=== PATIENT | male | born 1965 | race American Indian/Alaskan Native ===

== ENCOUNTER 2018-03-13 07:19 | Emergency (ER) | payer OTHER ==
[2018-03-13 09:05] LABS: Bilirubin,Urine NEG (Negative); Blood,Urine SM (Negative); Color,Urine Yellow (Yellow)
[2018-03-13 09:57] LABS: Basophils % (Auto) 0.2 % (0.0-1.8); Hemoglobin 15.8 gm/dl (11.8-15.2); Lymphocytes # (Auto) 0.8 K/mm3 (1.2-5.4); Lymphocytes % (Auto) 5.6 % (13.4-35.0); Mean Corpuscular HGB Conc 32 % (32-34); Mean Corpuscular Hemoglobin 27 pg (28-32); Mean Corpuscular Volume 83 fl (84-94); Monocytes # (Auto) 0.9 K/mm3 (0.0-0.8); Monocytes % (Auto) 6.2 % (0.0-7.3); Platelet Count 141 K/mm3 (140-440); Red Blood Count 5.91 M/mm3 (3.65-5.03); Red Cell Distribution Width 14.3 % (13.2-15.2)
[2018-03-13 10:20] LABS: Alanine Aminotransferase 36 units/L (7-56); BUN/Creatinine Ratio 13; Blood Urea Nitrogen 10 mg/dL (9-20); Calcium 9.3 mg/dL (8.4-10.2); Hemolysis Index 3
[2018-03-13] MEDS ORDERED: TORADOL IM ONE (11:33)
[2018-03-13] MEDS ORDERED: ULTRAM PO ONE (11:33)
[2018-03-13] MEDS ORDERED: BACTRIM DS PO ONE (11:33)
--- NOTE | 2018-03-13 11:41 | Emergency Department Report ---
ED Male HPI - General Chief complaint: Abdominal Pain Stated complaint: PAIN WITH UNRINATION Time Seen by Provider: 03/13/18 11:28 Source: patient Mode of arrival: Ambulatory Limitations: No Limitations - History of Present Illness Initial comments: 52-year-old male with the past medical history hypertension and borderline diabetes presents to the hospital with complaints of suprapubic pain, dysuria, urinary frequency for the past 2 days. Patient feeling generalized body aches and chills without documented fever. Denies difficulty with urine output. He complains of pain with defecation as well. Patient states he is a borderline diabetic. Does not check his sugar at home and is not currently on blood pressure medications secondary to loss of insurance. - Related Data Previous Rx's Medication Instructions Recorded Last Taken Type Docusate Sodium [Colace] 100 mg PO BID PRN #20 capsule 03/13/18 Unknown Rx Ibuprofen [Motrin] 800 mg PO Q8HR PRN #30 tablet 03/13/18 Unknown Rx Phenazopyridine [Pyridium] 200 mg PO TID #6 tab 03/13/18 Unknown Rx Sulfamethoxazole/Trimethoprim 1 each PO BID #14 tablet 03/13/18 Unknown Rx [Bactrim DS TAB] amLODIPine [Norvasc] 5 mg PO DAILY #30 tab 03/13/18 Unknown Rx traMADol [Ultram 50 MG tab] 50 mg PO Q6HR PRN #20 tablet 03/13/18 Unknown Rx Allergies Allergy/AdvReac Type Severity Reaction Status Date / Time No Known Allergies Allergy Unverified 03/13/18 07:54 ED Review of Systems ROS: Stated complaint: PAIN WITH UNRINATION Other details as noted in HPI Comment: All other systems reviewed and negative ED Past Medical Hx - Past Medical History Hx Hypertension: Yes - Surgical History Past Surgical History?: No - Social History Smoking Status: Never Smoker - Medications Home Medications: Home Medications Medication Instructions Recorded Confirmed Last Taken Type Docusate Sodium [Colace] 100 mg PO BID PRN #20 capsule 03/13/18 Unknown Rx Ibuprofen [Motrin] 800 mg PO Q8HR PRN #30 tablet 03/13/18 Unknown Rx Phenazopyridine [Pyridium] 200 mg PO TID #6 tab 03/13/18 Unknown Rx Sulfamethoxazole/Trimethoprim 1 each PO BID #14 tablet 03/13/18 Unknown Rx [Bactrim DS TAB] amLODIPine [Norvasc] 5 mg PO DAILY #30 tab 03/13/18 Unknown Rx traMADol [Ultram 50 MG tab] 50 mg PO Q6HR PRN #20 tablet 03/13/18 Unknown Rx ED Physical Exam - General Limitations: No Limitations - Other Other exam information: General: No limitations, patient is alert in no acute distress Head exam: Atraumatic, normocephalic Eyes exam: Normal appearance ENT: Moist mucous membrane, normal oropharynx Neck exam: Normal inspection, full range of motion, no meningismus nontender Respiratory exam: Clear to auscultation bilateral, no wheezes, rales, crackles Cardiovascular: Normal rate and rhythm, normal heart sounds Abdomen: Soft, nondistended, mild superpubic tenderness, normal bowel, no rebound, or guarding Extremity: Full range of motion normal inspection no deformity Back: Normal Inspection, full range of motion, no tenderness Neurologic: Alert, oriented x3, cranial nerves intact, no motor or sensory deficit Psychiatric: normal affect, normal mood Skin: Warm, dry, intact ED Course Vital Signs 03/13/18 03/13/18 03/13/18 07:50 11:43 11:45 Temperature 98.6 F Pulse Rate 104 H Respiratory 16 18 18 Rate Blood Pressure 155/91 Blood Pressure [Left] O2 Sat by Pulse Oximetry 03/13/18 12:05 Temperature 100.2 F H Pulse Rate 116 H Respiratory 18 Rate Blood Pressure Blood Pressure 143/97 [Left] O2 Sat by Pulse 99 Oximetry ED Medical Decision Making - Lab Data Result diagrams: 03/13/18 09:25 03/13/18 09:25 Lab Results 03/13/18 03/13/18 03/13/18 Range/Units 08:18 09:25 09:25 WBC 14.7 H (4.5-11.0) K/mm3 RBC 5.91 H (3.65-5.03) M/mm3 Hgb 15.8 H (11.8-15.2) gm/dl Hct 49.0 H (35.5-45.6) % MCV 83 L (84-94) fl MCH 27 L (28-32) pg MCHC 32 (32-34) % RDW 14.3 (13.2-15.2) % Plt Count 141 (140-440) K/mm3 Lymph % (Auto) 5.6 L (13.4-35.0) % Taylor % (Auto) 6.2 (0.0-7.3) % Eos % (Auto) 0.0 (0.0-4.3) % Baso % (Auto) 0.2 (0.0-1.8) % Lymph # 0.8 L (1.2-5.4) K/mm3 Taylor # 0.9 H (0.0-0.8) K/mm3 Eos # 0.0 (0.0-0.4) K/mm3 Baso # 0.0 (0.0-0.1) K/mm3 Seg Neutrophils % 88.0 H (40.0-70.0) % Seg Neutrophils # 13.0 H (1.8-7.7) K/mm3 Sodium 132 L (137-145) mmol/L Potassium 4.2 (3.6-5.0) mmol/L Chloride 94.1 L (98-107) mmol/L Carbon Dioxide 28 (22-30) mmol/L Anion Gap 14 mmol/L BUN 10 (9-20) mg/dL Creatinine 0.8 (0.8-1.5) mg/dL Estimated GFR > 60 ml/min BUN/Creatinine Ratio 13 % Glucose 204 H (75-100) mg/dL Calcium 9.3 (8.4-10.2) mg/dL Total Bilirubin 3.10 H (0.1-1.2) mg/dL AST 29 (5-40) units/L ALT 36 (7-56) units/L Alkaline Phosphatase 121 (35-129) units/L Total Protein 7.9 (6.3-8.2) g/dL Albumin 4.0 (3.9-5) g/dL Albumin/Globulin Ratio 1.0 % Urine Color Yellow (Yellow) Urine Turbidity Clear (Clear) Urine pH 5.0 (5.0-7.0) Ur Specific [place] 1.029 (1.003-1.030) Urine Protein 30 mg/dl (Negative) mg/dL Urine Glucose (UA) >=500 (Negative) mg/dL Urine Ketones 20 (Negative) mg/dL Urine Blood Sm (Negative) Urine Nitrite Neg (Negative) Urine Bilirubin Neg (Negative) Urine Urobilinogen 4.0 (<2.0) mg/dL Ur Leukocyte Esterase Neg (Negative) Urine WBC (Auto) 11.0 H (0.0-6.0) /HPF Urine RBC (Auto) 3.0 (0.0-6.0) /HPF U Epithel Cells (Auto) < 1.0 (0-13.0) /HPF - Medical Decision Making Urine positive for infection. Patient will be treated with Bactrim. Outpatient follow-up and repeat glucose monitoring and testing rec. Norvasc prescribed for hypertension. In the ED patient given Toradol, tramadol, and Bactrim Upon repeat vitals patient has a low-grade fever amount tachycardia likely secondary to fever. Patient is tolerating by mouth without vomiting. Given Tylenol prior to discharge. - Differential Diagnosis UTI, prostatitis, appendicitis Critical Care Time: No Critical care attestation.: If time is entered above; I have spent that time in minutes in the direct care of this critically ill patient, excluding procedure time. ED Disposition Clinical Impression: UTI (urinary tract infection), HTN (hypertension), Blood glucose elevated Disposition: TO HOME OR SELFCARE Is pt being admited?: No Does the pt Need Aspirin: No Condition: Stable Instructions: Urinary Tract Infection in Men (ED), How to Check Your Blood Sugar (ED), Hypertension (ED) Additional Instructions: Take the medication as prescribed. Follow-up with the clinic or doctor provided. Return if symptoms worsen as indicated by your discharge instructions. You may also take Tylenol as needed for fever. Prescriptions: amLODIPine [Norvasc] 5 mg PO DAILY #30 tab Docusate Sodium [Colace] 100 mg PO BID PRN #20 capsule PRN Reason: Constipation Ibuprofen [Motrin] 800 mg PO Q8HR PRN #30 tablet PRN Reason: Pain Phenazopyridine [Pyridium] 200 mg PO TID #6 tab Sulfamethoxazole/Trimethoprim [Bactrim DS TAB] 1 each PO BID #14 tablet traMADol [Ultram 50 MG tab] 50 mg PO Q6HR PRN #20 tablet PRN Reason: Pain Referrals: PRIMARY CARE, [Primary Care Provider] - 3-5 Days [facility] [Provider Group] - 3-5 Days TEDDY VALLES JR, MD [Staff Physician] - 3-5 Days Time of Disposition: 11:41
[2018-03-13 12:06] VITALS: BP 143/97
[2018-03-13] MEDS ORDERED: TYLENOL PO ONE (12:09)
== END 2018-03-13 12:24 | disposition home or self-care (01) ==
LOC: ED 07:19
DX: N39.0 Urinary tract infection, site not specified (principal); I10 Essential (primary) hypertension
CPT/HCPCS: 36415; 80053; 81001; 85025; 87086; 96372; 99283; J1885

== ENCOUNTER 2019-12-11 10:03 | Emergency (ER) | payer SELFPAY ==
[2019-12-11 11:05] LABS: Hematocrit 47.7 % (35.5-45.6); Hemoglobin 15.3 gm/dl (11.8-15.2); Mean Corpuscular HGB Conc 32 % (32-34); Mean Corpuscular Volume 83 fl (84-94); Platelet Count 337 K/mm3 (140-440); Red Blood Count 5.76 M/mm3 (3.65-5.03); Red Cell Distribution Width 14.6 % (13.2-15.2)
[2019-12-11 11:11] LABS: INR 1.14 (0.87-1.13)
[2019-12-11] MEDS ORDERED: SODIUM CHLORIDE 0.9% 1000 ML IV SOLN IV ONE (11:11)
[2019-12-11] MEDS ORDERED: VANCOMYCIN 1,750 MG in SODIUM CHLORIDE 0.9% 500 ML 500 ML IV ONE (11:16)
[2019-12-11] MEDS ORDERED: KETOROLAC 30 MG/1 ML INJ IV ONE (11:17)
[2019-12-11 11:19] LABS: BUN/Creatinine Ratio 11; Blood Urea Nitrogen 9 mg/dL (9-20); Calcium 9.9 mg/dL (8.4-10.2); Hemolysis Index 2
[2019-12-11] MEDS ORDERED: SODIUM CHLORIDE 0.9% 1000 ML 1,000 ML IV ONE (11:22)
--- NOTE | 2019-12-11 11:50 | Emergency Department Report ---
ED Extremity Problem HPI - General Chief complaint: Extremity Problem,Nontraumatic Stated complaint: SWOLLEN Time Seen by Provider: 12/11/19 11:06 Source: patient Mode of arrival: Ambulatory Limitations: No Limitations - History of Present Illness Initial comments: 54-year-old male with a past medical history of hypertension not currently on meds and left leg injury as a child with recurrent swelling presents to the hospital with complaints of left leg swelling and pain x6 days. Patient states every winter he has recurrent swelling to his left leg due to previous injury. For the past 6 days patient states he has been on his feet a lot and walking on concrete which he thinks has exacerbated his symptoms. Patient denies recent injury, fever, recent travel, chest pain, shortness of breath, history of PE or DVT. Pain is currently moderate, constant, and worse with palpation. Severity scale (0 -10): 8 - Related Data Previous Rx's Medication Instructions Recorded Last Taken Type Docusate Sodium [Colace] 100 mg PO BID PRN #20 capsule 03/13/18 Unknown Rx Phenazopyridine [Pyridium] 200 mg PO TID #6 tab 03/13/18 Unknown Rx amLODIPine [Norvasc] 5 mg PO DAILY #30 tab 03/13/18 Unknown Rx traMADoL [Ultram 50 MG tab] 50 mg PO Q6HR PRN #20 tablet 03/13/18 Unknown Rx Doxycycline Monohydrate 100 mg PO BID #14 capsule 12/11/19 Unknown Rx [Doxycycline Monohydrate CAP] HYDROcodone/APAP 5-325 [Vian 1 each PO Q6HR PRN #14 tablet 12/11/19 Unknown Rx 5/325] Ibuprofen [Motrin 800 MG tab] 800 mg PO Q8HR PRN #30 tablet 12/11/19 Unknown Rx lisinopriL [Zestril TAB] 20 mg PO QDAY #30 tablet 12/11/19 Unknown Rx metFORMIN [Glucophage] 500 mg PO BID #60 tablet 12/11/19 Unknown Rx Allergies Allergy/AdvReac Type Severity Reaction Status Date / Time No Known Allergies Allergy Verified 12/11/19 11:21 ED Review of Systems ROS: Stated complaint: SWOLLEN Other details as noted in HPI Comment: All other systems reviewed and negative ED Past Medical Hx - Past Medical History Previous Medical History?: Yes Hx Hypertension: Yes - Surgical History Past Surgical History?: No - Social History Smoking Status: Never Smoker - Medications Home Medications: Home Medications Medication Instructions Recorded Confirmed Last Taken Type Docusate Sodium [Colace] 100 mg PO BID PRN #20 capsule 03/13/18 Unknown Rx Phenazopyridine [Pyridium] 200 mg PO TID #6 tab 03/13/18 Unknown Rx amLODIPine [Norvasc] 5 mg PO DAILY #30 tab 03/13/18 Unknown Rx traMADoL [Ultram 50 MG tab] 50 mg PO Q6HR PRN #20 tablet 03/13/18 Unknown Rx Doxycycline Monohydrate 100 mg PO BID #14 capsule 12/11/19 Unknown Rx [Doxycycline Monohydrate CAP] HYDROcodone/APAP 5-325 [Vian 1 each PO Q6HR PRN #14 tablet 12/11/19 Unknown Rx 5/325] Ibuprofen [Motrin 800 MG tab] 800 mg PO Q8HR PRN #30 tablet 12/11/19 Unknown Rx lisinopriL [Zestril TAB] 20 mg PO QDAY #30 tablet 12/11/19 Unknown Rx metFORMIN [Glucophage] 500 mg PO BID #60 tablet 12/11/19 Unknown Rx ED Physical Exam - General Limitations: No Limitations - Other Other exam information: General: No acute distress Head: Atraumatic Eyes: normal appearance ENT: Moist mucous membranes Neck: Normal appearance, no midline tenderness Chest: Clear to auscultation bilaterally CV: Re mild tachycardia regular rhythm Abdomen: Soft, normal bowel sounds, nontender, nondistended, no rebound or guarding Back: Normal inspection Extremity: Left anterior tibia healed wound with surrounding swelling, warmth, and tenderness to the anterior leg. Posterior lower leg/calf without ten derness, swelling, or warmth. 2+ DP pulse. No crepitus Neuro: Alert O x 3, no facial asymmetry, speech clear, no gross motor sensory deficit Psych: Appropriate behavior Skin: No rash ED Course Vital Signs 12/11/19 12/11/19 12/11/19 10:27 10:28 11:30 Temperature 99.0 F 99.0 F Pulse Rate 132 H 124 H 98 H Respiratory 18 20 15 Rate Blood Pressure 172/98 157/91 Blood Pressure 172/98 [Right] O2 Sat by Pulse 98 98 100 Oximetry 12/11/19 12/11/19 12/11/19 12:00 13:21 13:28 Temperature 98.3 F Pulse Rate 89 79 Respiratory 14 19 Rate Blood Pressure 157/91 Blood Pressure 152/85 [Right] O2 Sat by Pulse 100 99 Oximetry ED Medical Decision Making - Lab Data Result diagrams: 12/11/19 10:44 12/11/19 10:44 Lab Results 12/11/19 12/11/19 12/11/19 Range/Units 10:44 10:44 10:44 WBC 10.1 (4.5-11.0) K/mm3 RBC 5.76 H (3.65-5.03) M/mm3 Hgb 15.3 H (11.8-15.2) gm/dl Hct 47.7 H (35.5-45.6) % MCV 83 L (84-94) fl MCH 27 L (28-32) pg MCHC 32 (32-34) % RDW 14.6 (13.2-15.2) % Plt Count 337 (140-440) K/mm3 Lymph % (Auto) Ham Smoker Caroline % (Auto) Ham Smoker Eos % (Auto) Ham Smoker Baso % (Auto) Ham Smoker Lymph # Ham Smoker Caroline # Ham Smoker Eos # Ham Smoker Baso # Ham Smoker Seg Neutrophils % Ham Smoker Seg Neutrophils # Ham Smoker PT 14.8 (12.2-14.9) Sec. INR 1.14 H (0.87-1.13) Sodium 140 (137-145) mmol/L Potassium 4.2 (3.6-5.0) mmol/L Chloride 98.8 (98-107) mmol/L Carbon Dioxide 27 (22-30) mmol/L Anion Gap 18 mmol/L BUN 9 (9-20) mg/dL Creatinine 0.8 (0.8-1.5) mg/dL Estimated GFR > 60 ml/min BUN/Creatinine Ratio 11 % Glucose 278 H (75-100) mg/dL POC Glucose (70-105) Hemoglobin A1c (4-6) % Calcium 9.9 (8.4-10.2) mg/dL 12/11/19 12/11/19 12/11/19 Range/Units 12:00 13:20 14:15 WBC (4.5-11.0) K/mm3 RBC (3.65-5.03) M/mm3 Hgb (11.8-15.2) gm/dl Hct (35.5-45.6) % MCV (84-94) fl MCH (28-32) pg MCHC (32-34) % RDW (13.2-15.2) % Plt Count (140-440) K/mm3 Lymph % (Auto) Caroline % (Auto) Eos % (Auto) Baso % (Auto) Lymph # Caroline # Eos # Baso # Seg Neutrophils % Seg Neutrophils # PT (12.2-14.9) Sec. INR (0.87-1.13) Sodium (137-145) mmol/L Potassium (3.6-5.0) mmol/L Chloride (98-107) mmol/L Carbon Dioxide (22-30) mmol/L Anion Gap mmol/L BUN (9-20) mg/dL Creatinine (0.8-1.5) mg/dL Estimated GFR ml/min BUN/Creatinine Ratio % Glucose (75-100) mg/dL POC Glucose 205 H 137 H (70-105) Hemoglobin A1c 10.6 H (4-6) % Calcium (8.4-10.2) mg/dL - EKG Data -: EKG Interpreted by Sd EKG shows normal: sinus rhythm, ST-T waves (no stemi) Rate: normal (96) - Radiology Data Radiology results: report reviewed LEFT TIBIA FIBULA 2 VIEWS INDICATION: left leg swelling, pain, infection. COMPARISON: None. IMPRESSION: There is mild nonspecific soft tissue edema or swelling which could represent cellulitis. No soft tissue gas or foreign body. The proximal tibial shaft appears expanded. There is no discrete bone lesion, periostitis or bony destruction. 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 No fracture is appreciated. The fibula is unremarkable. No acute bony process is suspected. If further evaluation is needed, MRI preferably with contrast would provide the most information. DUPLEX DOPPLER LOWER EXTREMITY VEINS, LEFT INDICATION: left leg swelling, pain, infection. TECHNIQUE: Duplex doppler imaging was performed through the veins of the left lower extremity using venous compression and other maneuvers. CO MPARISON: None available. FINDINGS: Common Femoral vein: Negative. Superficial Femoral vein: Negative. Popliteal vein: Negative. Calf veins: Negative. Additional findings: None. IMPRESSION: 1. No sonographic evidence for DVT in the left lower extremity. - Medical Decision Making Patient has hyperglycemia with elevated hemoglobin A1c and he therefore is a ethan betic. This is a new diagnosis. Patient received 1 dose of insulin and IV fluids in the ED with reduction in glucose. Metformin twice daily will be prescribed. Patient suspected to have a cellulitis given swelling and warmth on exam. Patient provided 1 dose of IV vancomycin. No signs of leukocytosis, fever, sepsis, or DVT. Patient will be discharged with PMD f/u Patient has been off her lisinopril x1 year. Does not recall his previous dose. Will be provided lisinopril 20 mg daily and informed of risk of angioedema - Differential Diagnosis DVT, cellulitis, osteomyelitis Critical Care Time: No Critical care attestation.: If time is entered above; I have spent that time in minutes in the direct care of this critically ill patient, excluding procedure time. ED Disposition Clinical Impression: Left leg cellulitis, Chronic hypertension, Diabetes mellitus, new onset, Noncompliance with medication regimen Disposition: TO HOME OR SELFCARE Is pt being admited?: No Does the pt Need Aspirin: No Condition: Stable Instructions: Hypertension (ED), Diabetes Mellitus Type 2 in Adults (ED), Cellulitis (ED) Additional Instructions: Take the medication as prescribed. Follow-up with your doctor or doctor/clinic provided. Return if symptoms worsen as indicated by your discharge instructions. Prescriptions: Doxycycline Monohydrate [Doxycycline Monohydrate CAP] 100 mg PO BID #14 capsule metFORMIN [Glucophage] 500 mg PO BID #60 tablet Ibuprofen [Motrin 800 MG tab] 800 mg PO Q8HR PRN #30 tablet PRN Reason: Pain HYDROcodone/APAP 5-325 [Vian 5/325] 1 each PO Q6HR PRN #14 tablet PRN Reason: Pain lisinopriL [Zestril TAB] 20 mg PO QDAY #30 tablet Referrals: MONIKA OSBORNE MD [Primary Care Provider] - 3-5 Days SHARONDA GUY MD [Staff Physician] - 3-5 Days [facility] [Provider Group] - 3-5 Days Time of Disposition: 14:26
--- NOTE | 2019-12-11 12:00 | XRay Report ---
LEFT TIBIA FIBULA 2 VIEWS INDICATION: left leg swelling, pain, infection. COMPARISON: None. IMPRESSION: There is mild nonspecific soft tissue edema or swelling which could represent cellulitis . No soft tissue gas or foreign body. The proximal tibial shaft appears expanded. There is no discret e bone lesion, periostitis or bony destruction. 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 No fracture is appreciated. The fibula is unremarkable. No acute bony process is suspected. If further evaluation i s needed, MRI preferably with contrast would provide the most information. Signer Name: Robert Gonzalez Jr, MD Signed: 12/11/2019 11:55 AM Workstation Name: [id number]
[2019-12-11] MEDS ORDERED: INSULIN REGULAR, HUMAN 100 UNITS/1 ML IV ONE (12:50)
--- NOTE | 2019-12-11 13:21 | Vascular Lab Report ---
DUPLEX DOPPLER LOWER EXTREMITY VEINS, LEFT INDICATION: left leg swelling, pain, infection. TECHNIQUE: Duplex doppler imaging was performed through the veins of the left lower extremity using venous compr ession and other maneuvers. COMPARISON: None available. FINDINGS: Common Femoral vein: Negative. Superficial Femoral vein: Negative. Popliteal vein: Negative. Calf veins: Negative. Additional findings: None. IMPRESSION: 1. No sonographic evidence for DVT in the left lower extremity. Signer Name: Brian Sen MD Signed: 12/11/2019 1:17 PM Workstation Name: [id number]
[2019-12-11 14:50] VITALS: BP 150/86
== END 2019-12-11 14:51 | disposition home or self-care (01) ==
LOC: ED 10:03
DX: L03.116 Cellulitis of left lower limb (principal); I10 Essential (primary) hypertension; E11.9 Type 2 diabetes mellitus without complications; Z91.14 Patient's other noncompliance with medication regimen
CPT/HCPCS: 36415; 73590; 80048; 82962; 83036; 85025; 85610; 87040; 93005; 93010; 93971; 96361; 96365; 96375; 99285; J1885; J3370; J7030; J7040; J1815